=== PATIENT | female | born 1945 | race Caucasian/White ===

== ENCOUNTER 2022-12-23 08:11 | Emergency (ER) | payer MEDICARE ==
[2022-12-23] MEDS ORDERED: HYDROcodone/Acetaminophen 5/325 mg Tablet ONE (08:54)
[2022-12-23] MEDS ORDERED: Ibuprofen 800 MG TAB ONE (08:54)
[2022-12-23] MEDS ORDERED: methylPREDNISolone Acetate 40 mg/ml Vial ONE ×2 (10:21→10:22)
== END 2022-12-23 10:44 | disposition home or self-care (01) ==
LOC: BURERS 08:11
DX: M51.36 Other intervertebral disc degeneration, lumbar region (principal); M16.12 Unilateral primary osteoarthritis, left hip; E78.5 Hyperlipidemia, unspecified; I10 Essential (primary) hypertension; Z79.899 Other long term (current) drug therapy
CPT/HCPCS: 72100; 96372; J1030